=== PATIENT | female | born 1995 | race Caucasian/White ===

== ENCOUNTER 2018-07-07 11:49 | Emergency (ER) | payer OTHER ==
--- NOTE | 2018-07-07 12:00 | ED ---
Shortness of Breath - HPI Summary HPI Summary: Patient is a 23 y/o F w/ c/o PNA. She reports she was experiencing high fever, congestion, productive cough, SOB, some chest tightness onsetting a week ago. Patient went to [facility], was told she had a viral syndrome, and discharged to home. Sx worsened and she returned to [facility] three days ago. They diagnosed her with PNA. She was given Zpack, but has still not experienced any improvement in Sx. SOB worsened, patient went back today to [facility], received CXR, and was sent here. On triage, pain is rated 6/10, nothing is noted to aggravate/alleviate Sx. Patient denies smoking. Home medications and allergies are reviewed. - History of Current Complaint Chief Complaint: EDGeneral Time Seen by Provider: 07/07/18 11:55 Hx Obtained From: Patient Onset/Duration: Lasting Weeks - onset a week ago, Still Present, Worse Since - SOB worsened today Current Severity: Moderate - 6/10 Aggrevating Factors: Nothing Alleviating Factors: Nothing Associated Signs & Symptoms: Cough (Productive), Chest Pain w/Cough - chest tightness, Fever - Allergy/Home Medications Allergies/Adverse Reactions: Allergies Allergy/AdvReac Type Severity Reaction Status Date / Time No Known Allergies Allergy Verified 07/07/18 11:58 Home Medications: Home Medications Albuterol HFA INHALER* [Ventolin HFA Inhaler*] 2 puff INH Q4H PRN 07/07/18 [ History Confirmed 07/07/18] Norgestimate-Ethinyl Estradiol [[place]worth-Linyah 28 Tablet] 1 tab PO DAILY 07/07/18 [ History Confirmed 07/07/18] Sertraline* [Zoloft*] 50 mg PO DAILY 07/07/18 [History Confirmed 07/07/18] PMH/Surg Hx/FS Hx/Imm Hx Sensory History: Denies: Hx Legally Blind, Hx Deafness Opthamlomology History: Denies: Hx Legally Blind EENT History: Denies: Hx Deafness Infectious Disease History: No Infectious Disease History: Denies: Traveled Outside the [place] in Last 30 Days - Family History Known Family History: Negative: Blood Disorder - Social History Alcohol Use: Occasionally Substance Use Type: Reports: None Smoking Status (MU): Never Smoked Tobacco Review of Systems Positive: Fever Positive: Chest Pain - tightness Positive: Shortness Of Breath, Cough - productive , Other - congestion All Other Systems Reviewed And Are Negative: Yes Physical Exam - Summary Physical Exam Summary: VITAL SIGNS: Reviewed. GENERAL: Patient is a well-developed and nourished female who is lying comfortable in the stretcher. Patient is not in any acute respiratory distress. HEAD AND FACE: No signs of trauma. No ecchymosis, hematomas or skull depressions. No sinus tenderness. EYES: PERRLA, EOMI x 2, No injected conjunctiva, no nystagmus. EARS: Hearing grossly intact. Ear canals and tympanic membranes are within normal limits. MOUTH: Oropharynx within normal limits. NECK: Supple, trachea is midline, no adenopathy, no JVD, no carotid bruit, no c- spine tenderness, neck with full ROM. CHEST: Symmetric, no tenderness at palpation LUNGS: Clear to auscultation bilaterally. No wheezing; Bilateral base lung crackles CVS: Regular rate and rhythm, S1 and S2 present, no murmurs or gallops appreciated. ABDOMEN: Soft, non-tender. No signs of distention. No rebound no guarding, and no masses palpated. Bowel sounds are normal. EXTREMITIES: FROM in all major joints, no edema, no cyanosis or clubbing. NEURO: Alert and oriented x 3. No acute neurological deficits. Speech is normal and follows commands. SKIN: Dry and warm Triage Information Reviewed: Yes Vital Signs On Initial Exam: Initial Vitals Temp Pulse Resp BP Pulse Ox 100.1 F 112 19 125/76 98 07/07/18 11:55 07/07/18 11:55 07/07/18 11:55 07/07/18 11:55 07/07/18 11:55 Vital Signs Reviewed: Yes Diagnostics - Vital Signs Vital Signs Temp Pulse Resp BP Pulse Ox 07/07/18 11:55 100.1 F 112 19 125/76 98 - Laboratory Result Diagrams: 07/07/18 12:12 07/07/18 12:12 Lab Statement: Any lab studies that have been ordered have been reviewed, and results considered in the medical decision making process. - Radiology CXR Xray Interpretation: Positive (See Comments) Radiology Interpretation Completed By: Radiologist - CXR FROM [facility]: left mid and lower lung consolidation; recommend follow-up until resolution to exclude underlying pulmonary parenchymal pathology. This report was reviewed by ed physician. Re-Evaluation - Re-Evaluation First Eval Re-Evaluation Time: 15:30 Comment: The patient will be discharged home with mother. They were instructed that if she continues to have fever, worsening cough or shortness of breath the patient immediately return to the emergency room for further workup and management. They both understand and agree. Course/Dx - Course Assessment/Plan: This patient is a 23-year-old female who presents to the emergency department after the patient was transferred from panic care physician s office with a chief complaint of having pneumonia resistant to azithromycin. She reports that 7 days ago the patient developed a fever went to see the primary care physician office. She was told she had viral syndrome and discharged. Sx did not improve, she went back to PCP and was told she had PNA. She was placed on azithromycin and her symptoms did not improve; actually she reports state became worse. Today she is really short of breath. They report that she had a chest x-ray and she was found to have a left lower lobe pneumonia. Blood work shows a normal WBCs, ,microcytic hypochromic anemia, potassium 3.3, and CRP of 26.6. The patient was given potassium for the hypokalemia, and she was given Levaquin for the pneumonia. CURB 65 is 0 therefore the patient will be discharged home with follow-up with primary care physician in the last couple days. Vital signs before discharge the heart rate is 104, respiratory rate is 18-20, O2 sat is 97% on room air and blood pressure is 150/70. The patient will be discharged home with mother. They were instructed that if she continues to have fever, worsening cough or shortness of breath the patient immediately return to the emergency room for further workup and management. They both understand and agree. - Diagnoses Differential Diagnosis/HQI/PQRI: Positive: Asthma, Bronchitis, CHF, Pneumonia Provider Diagnoses: Pneumonia Discharge - Sign-Out/Discharge Documenting (check all that apply): Patient Departure - discharge - Discharge Plan Condition: Stable Disposition: HOME Prescriptions: Levofloxacin TAB* [Levaquin TAB*] 750 mg PO DAILY #9 tab Patient Education Materials: Pneumonia (ED) Referrals: [facility] [Outside] - 3 Days Additional Instructions: FOLLOW UP WITH PRIMARY CARE PHYSICIAN WITHIN THREE DAYS. RETURN TO ED FOR ANY NEW OR WORSENING SYMPTOMS. - Billing Disposition and Condition Condition: STABLE Disposition: Home - Attestation Statements Document Initiated by Scribe: Yes Documenting Scribe: Nasir Dunham Provider For Whom Cruzitoibe is Documenting (Include Credential): Jimmy Beth MD Scribe Attestation: INasir, scribed for Jimmy Beth MD on 07/08/18 at 1631. Scribe Documentation Reviewed: Yes Provider Attestation: The documentation as recorded by the Nasir her accurately reflects the service I personally performed and the decisions made by me, Jimmy Beth MD
[2018-07-07] MEDS ORDERED: NS 0.9% 1000 ML* 1,000 ML IV ONE ×2 (12:04→13:49)
[2018-07-07] MEDS ORDERED: Levofloxacin 750 MG IVPREMIX(* 750 MG/150 ML BAG IVPB ONE (12:05)
[2018-07-07 12:48] LABS: Hematocrit 29 % (35-47); Hemoglobin 9.2 g/dl (12.0-16.0); Mean Corpuscular HGB Conc 32 g/dl (31-36); Mean Corpuscular Hemoglobin 23 pg (27-31); Mean Corpuscular Volume 73 fL (80-97); Mean Platelet Volume 10.2 um3 (7.4-10.4); Platelet Count 134 10^3/ul (150-450); Red Blood Count 3.95 10^6/ul (4.00-5.40); Red Cell Distribution Width 16 % (10.5-15); White Blood Count 4.9 10^3/ul (3.5-10.8)
[2018-07-07 13:01] LABS: EGFR Non-African American 121.5 (>60)
[2018-07-07] MEDS ORDERED: Potassium Chlor TAB* 20 MEQ TAB.ER PO ONE (13:07)
[2018-07-07 13:18] LABS: ABS Basophils 0 10^3/ul (0-0.2); ABS Eosinophils 0.1 10^3/ul (0-0.6); ABS Lymphocytes 0.5 10^3/ul (1.0-4.8); ABS Monocytes 0.4 10^3/ul (0-0.8); ABS Neutrophils 3.8 10^3/ul (1.5-7.7); ABS Nucleated RBC 0 10^3/ul; Eosinophil % 2.2 % (0-6); Lymphocyte % 11.2 % (25-47); Nucleated Red Blood Cells % 0.1
[2018-07-07] MEDS ORDERED: Acetaminophen TAB* 325 MG PO ONE (13:48)
[2018-07-07 15:49] VITALS: BP 113/70
== END 2018-07-07 15:48 | disposition home or self-care (01) ==
LOC: ED 11:49
DX: J18.9 Pneumonia, unspecified organism (principal)
CPT/HCPCS: 36415; 80053; 83605; 85025; 86140; 87040; 96361; 96374; 99283; A9270-GY